=== PATIENT | male | born 1960 | race Caucasian/White ===

== ENCOUNTER → 2017-10-11 | Outpatient (CLI) | payer BC ==
--- NOTE | 2017-10-11 16:56 | RAD ---
PA and lateral chest x-ray without comparison for dyspnea for 10 days, smoker 45 years. FINDINGS: The lungs are clear. The cardiomediastinum is grossly unremarkable. No significant soft tissue or osseous abnormality is are seen. IMPRESSION: 1. No acute cardiopulmonary abnormality. Electronically signed by: Pepe Murguia MD (10/11/2017 4:53 PM) [id number]
== END | disposition home or self-care (01) ==
LOC: RAD 16:33
PROVIDERS: ATTEND Physician Assistant
DX: R06.00 Dyspnea, unspecified (principal); Z87.891 Personal history of nicotine dependence
CPT/HCPCS: 71046

== ENCOUNTER → 2019-01-16 | Outpatient (CLI) | payer BC ==
--- NOTE | 2019-01-17 09:02 | RAD ---
EXAM: AP and lateral views right ankle DATE: 01/16/2019 12:00 AM INDICATION: Right ankle pain COMPARISON: No Prior FINDINGS: No evidence of acute fracture or dislocation. Diffuse soft tissue swelling about the right ankle. IMPRESSION: No evidence of acute fracture or dislocation. Electronically signed by: Per Beth MD (01/17/2019 8:59 AM) [facility]
== END | disposition home or self-care (01) ==
LOC: PMG 14:38
PROVIDERS: ATTEND Physician Assistant
DX: M79.89 Other specified soft tissue disorders (principal); M25.571 Pain in right ankle and joints of right foot
CPT/HCPCS: 73600

== ENCOUNTER → 2019-01-23 | Outpatient (CLI) | payer BC ==
--- NOTE | 2019-01-23 16:33 | RAD ---
EXAM: Chest, 2 views. HISTORY: Cough. COMPARISON: 10/11/2017 FINDINGS: 2 views of the chest are obtained. There is no infiltrate, pleural effusion or pneumothorax. The heart is normal in size. There is symmetric circumscribed nodules overlying the lower thorax due to nipple shadows. IMPRESSION: No acute pulmonary finding. Electronically signed by: Negrita Wallace MD (01/23/2019 4:31 PM) [id number]
== END | disposition home or self-care (01) ==
LOC: DXRAD 14:39
PROVIDERS: ATTEND Internal Medicine Pulmonary Disease
DX: J44.9 Chronic obstructive pulmonary disease, unspecified (principal)
CPT/HCPCS: 71046

== ENCOUNTER → 2020-07-13 | Outpatient (CLI) | payer BC, OTHER ==
--- NOTE | 2020-07-13 17:51 | RAD ---
PROCEDURE: XR ELBOW COMPLETE_LEFT 3+VIEWS STUDY DATE: 07/13/2020 CLINICAL INDICATION / HISTORY: Reason: LEFT ELBOW PAIN / Spl. Instructions: / History: . TECHNIQUE: Left Elbow 2 views COMPARISON: None FINDINGS: Two views of the left elbow demonstrate no evidence of fracture, subluxation, or dislocatio n. Soft tissues unremarkable. IMPRESSION: No acute osseous abnormality. Electronically signed by: Guilherme Saxena MD (07/13/2020 5:48 PM) [id number]
== END ==
LOC: RAD 13:03
PROVIDERS: ATTEND Family Medicine
DX: M25.522 Pain in left elbow (principal)
CPT/HCPCS: 73080